=== PATIENT | female | born 1990 | race Caucasian/White ===

== ENCOUNTER 2019-04-15 08:33 | Outpatient (CLI) | payer BC, SELFPAY ==
[2019-04-15 09:27] LABS: Hemoglobin 11.7 g/dL (12.0-15.0); Mean Corpuscular HGB Conc 33.4 g/dl (32-36); Mean Corpuscular Hemoglobin 29.8 pg (26-34); Mean Corpuscular Volume 89.3 fl (80-100); Mean Platelet Volume 10.2 fl (7.4-10.4); Platelet Count Result 200 k/mm3 (150-375); Red Blood Count 3.92 M/mm3 (4.2-5.4); Red Cell Distribution Width 14.6 % (11.5-14.5)
--- NOTE | 2019-04-16 18:43 | WPDANESEPP ---
Anes - Eval Pre Procedure Procedure: Repeat C Section Date/Time: 04/16/19 18:43 Surgeon: Sharri Preop Diagnosis: Previous C Section Pre Op Diagnosis: c/s Patient Data Age: 29 Gender: F Height: Weight: Allergies Allergy/AdvReac Type Severity Reaction Status Date / Time No Known Allergies Allergy Verified 03/28/19 15:40 Home Medications Medication Instructions Recorded Confirmed Type PNV cmb#95-ferrous fumarate-FA 1 tablet PO DAILY 03/28/19 03/28/19 History [] Patient hx anesthesia problems: none Family hx anesthesia problems: none PMFSH Past Medical History Medical History Delivery by section for breech presentation Ectopic Surgical History Surgical History (Updated 04/16/19 @ 18:46 by Erik Ann CRNA) Previous section Family History Family History Father Hypertension Social History Social History Substance use: never Spiritual care concerns: No Exam Day of Procedure 04/16/19 18:43 Patient weight: overweight
[2019-04-17 10:13] LABS: Rapid Plasma Reagin Non-Reactive (NonReactive)
== END 2019-04-15 08:34 | disposition home or self-care (01) ==
PROVIDERS: Visit Provider Obstetrics & Gynecology
DX: Z34.93 Encounter for supervision of normal pregnancy, unspecified, third trimester (principal); Z3A.00 Weeks of gestation of pregnancy not specified
CPT/HCPCS: 36415; 85027; 86592; 86850; 86900; 86901

== ENCOUNTER 2019-04-17 05:19 | Inpatient (IN) | payer BC, SELFPAY ==
--- NOTE | 2019-03-28 15:49 | PC.NURSE ---
PATIENT STATES SHE IS A REPEAT C/S ON 04/17/19 AT 0730--OFFICE CALLED TO VERIFY-- NOT ON SURGERY SCHEDULE AT TIME OF PRE-ADMIT PATIENT GIVEN REQUISITION FOR LAB DRAW ON 04/15/19
[2019-04-17] VITALS (66 sets, daily range): BP systolic 72–131; BP diastolic 37–89; PULSE 65–138; RESP 10–16; TEMP 36.4–37.2; O2SAT 96–100; BMI 42.0
--- NOTE | 2019-04-17 06:06 | LDADM ---
This patient, Franchesca Lyon, was admitted to Labor/Delivery/Recovery 120 on 04/17/19 at 05:19. Plans for labor, pain management and were discussed with patient. Patient/family oriented to hospital policies and general routines including ID bracelet, bed and alarms, visiting hours, pain management, procedures, bathroom and other care routines, personal items, smoking policy, room service/diet and guest tray routines, security routines, and visiting hours. Patient/Family are encouraged to report perceived risks to care and to ask questions if they do not understand what they are told or what they should do. See OBIX for further documentation.
[2019-04-17] MEDS: LACTATED RINGERS 1,000 ML 125 ML IV CONT ×2 (06:09→06:23)
--- NOTE | 2019-04-17 06:38 | WPDANESEFPP ---
Anes - Eval Final PreProcedure Day of Procedure 04/17/19 06:38 Patient weight: obese Heart: regular rate and rhythm Lungs: clear to auscultation Airway: Mallampati scale class 1 Neurological: alert and oriented Last oral intake: >/= 8 hours ASA classification: II Emergent: no Anesthetic plan: proceed Anesthesia type and monitoring: regional spinal and standard monitoring Informed Consent: The patient's anesthetic plan and its attendant risks and benefits were discussed with the patient/family/POA. Questions were solicited and answers provided to the satisfaction of the patient/family/POA.
[2019-04-17] MEDS: ceFAZolin 2 GM/D5W 50 ML 2 GM/50 ML BAG IVPB (06:57)
--- NOTE | 2019-04-17 06:58 | PM.IMHP ---
H&P: HPI History of Present Illness Chief complaint: repeat cesearean section Narrative: Franchesca Lyon is a 29 year old female 3 para 1 011 at 39 weeks gestation who presents for repeat delivery. She has a history of delivery. She denies any loss of fluid, vaginal bleeding, contractions. She denies any headache, blurry vision, epigastric pain. She denies any nausea, vomiting, fever, chills. Denies any chest pain or shortness of breath. Review of Systems Constitutional: Constitutional: Reports no additional constitutional complaints, Denies fatigue, Denies headache(s), Denies lethargy and Denies weakness Eyes: Eyes: Reports no additional eye complaints, Denies blurry vision and Denies photophobia ENT: Reports as per HPI, Denies headache(s) and Denies neck pain Cardiovascular: Cardiovascular: Denies chest pain, Denies diaphoresis, Denies leg edema, Denies palpitations and Denies dyspnea Respiratory: Respiratory: Denies hemoptysis, Denies dyspnea and Denies wheezing Gastrointestinal: Gastrointestinal: Denies abdominal pain, Denies melena, Denies bloating, Denies hematochezia, Denies nausea and Denies vomiting Genitourinary: Genitourinary: Reports no additional female genitourinary complaints Musculoskeletal: Musculoskeletal: Denies joint swelling, Denies neck pain, Denies numbness and Denies stiffness Neurologic: Denies Abnormal speech present, Denies confusion, Denies headache(s), Denies numbness and Denies weakness Psychiatric: Psychiatric: Denies anxiety, Denies confusion, Denies depression, Denies homicidal ideation and Denies suicidal ideation Endocrine: Endocrine: Denies fatigue and Denies palpitations Allergic/Immunologic: Allergic/Immunologic: Denies wheezing PMFSH Past Medical History Medical History (Updated 04/17/19 @ 07:00 by Trixie Harrell MD) Delivery by section for breech presentation Ectopic Surgical History Surgical History (Updated 04/17/19 @ 07:00 by Trixie Harrell MD) Previous section Social History Social History Smoking status: Never smoker Substance use: never Spiritual care concerns: No Meds Home Medications and Allergies Home Medications Medication Instructions Recorded Confirmed Type PNV cmb#95-ferrous fumarate-FA 1 tablet PO DAILY 03/28/19 03/28/19 History [] Allergies Allergy/AdvReac Type Severity Reaction Status Date / Time No Known Allergies Allergy Verified 03/28/19 15:40 Vital Signs Vital Signs - 24 hr 04/17/19 05:40 04/17/19 05:46 04/17/19 06:01 Pulse Rate 110 H 106 H 103 H Blood Pressure 101/67 109/77 117/74 Exam Const: General: healthy appearing, comfortable and no acute distress; No confusion Orientation/consciousness: No confusion Eyes: Direct Ophthalmoscopy: No photophobia Resp: Auscultation: clear to auscultation bilaterally, no rales, no rhonchi and no wheezes Cardio: Rate: regular rate Heart sounds: no click, no murmurs and no rubs GI: Inspection: non-distended GI Palp: No abdominal tenderness Auscultation: normal bowel sounds Neuro: General: No confusion Speech: No Abnormal speech present Extrem: General: normal to inspection, no pedal edema and no calf tenderness Assessment and Plan Assessment and plan (1) Previous section: Code(s): Z98.891 - History of uterine scar from previous surgery Status: Acute (2) Term : Code(s): Z34.90 - Encounter for supervision of normal , unspecified, unspecified trimester Status: Acute Assessment and Plan: This patient is a 29-year-old 3 para 1011 at 39 weeks gestation who presents for repeat delivery. She has history of delivery. She understands that there are risks of the procedures. She understands that there benefits and alternatives as well. This completed the informed
--- NOTE | 2019-04-17 08:25 | P.OP_ITS ---
Procedure Note - Detailed Date of procedure: 04/17/19 Pre-op diagnosis: repeat cesearean section Post-op diagnosis: same Procedure performed: Repeat low-transverse delivery Description of procedure: The patient was taken the operating room. She was prepped and draped in the dorsal supine position with leftward tilt after induction of spinal anesthetic. When anesthesia was found to be adequate a low- transverse skin incision was made and carried down to the level the fascia with the knife. The fascial incision was made at the midline with a scalpel. The fascial incision was extended laterally with Schmitz scissors. The fascia was tented upward superior and inferior with Jody clamps. The rectus muscles were dissected off bluntly. The rectus muscles at the midline. The preperitoneal fat was dissected bluntly at the superior aspect of the separate the rectus muscles. The peritoneal cavity was entered bluntly in the same area. The peritoneal incision was extended superior and inferior with good position of bladder. Bladder blade was inserted. A low-transverse incision was made on the uterus with the scalpel. It was carried down the level of the amniotic cavity with a knife. The amniotic cavity bluntly. The uterine incision was made laterally with blunt traction. The infant was delivered. The cord was clamped and cut. The infant was handed off to waiting pediatric staff. Cord bloods were obtained. The placenta was removed manually. The uterus was exteriorized. Uterus cleared of all clots and debris. Uterus closed in 0 Vicryl in a running locked fashion. An imbricating layer of 0 Vicryl was also placed on the to bolster the closure. The uterus was returned to the abdomen. The gutters were cleared of all clots and debris. The fascia was closed 0 Vicryl in a running fashion. Subcutaneous tissue was irrigated and bleeding areas were cauterized. The skin was closed with subcuticular absorbable alin. The incision was covered with derma loza. The patient tolerated the procedure well. She was taken recovery room stable condition. Sponge, lap, needle counts were correct x2. Anesthesia: spinal Surgeon: Trixie Harrell MD Estimated blood loss (mL): 210 Drains: No Packing: No Pathology: none sent Complications: No immediate complications Condition: stable Disposition: floor Findings: Normal maternal anatomy. Average size with normal Apgars.
[2019-04-17] MEDS: KETOROLAC 30 MG/ML VIAL (*BKC) IV PUSH (11:19)
--- NOTE | 2019-04-17 12:00 | PC.NURSE ---
Mother called out for assist with feeding. Mother state she used a nipple shield with first child and stopped within a few weeks. Mother is using a nipple shield due to flat nipples. Mother states she does not like to pump and may stop if infant is unable to latch without shield. Suggested mother initiate pumping to stimulate milk supply, once her milk is in and is gaining weight and satisfied mother does not need to continue to pump. Nipple shield provided to mother due to flat nipples. Instructions given on application and cleaning of shield. Discussed nipple shield precautions and possible complications. Patient able to return demonstration on proper application of shield. Discussed the need to initiate pumping if infant continues to nurse with the shield. Patient verbalizes understanding. Reviewed infant feeding cues, frequencies, duration of feedings, feeding elimination flow sheet, and signs of adequate intake. Demonstrated stimulation techniques to wake for feeding. Assisted with infant to breast. Reviewed positioning/alignment in cross cradle, holding breast in U hold and guided asymmetrical latch on. was able to latch correctly. nursed eagerly, with steady draws and frequent swallowing noted. Reviewed signs of a correct latch, effective nursing and suck swallow ratio. was able to maintain latch without discomfort to mother. Nipple care reviewed. Instructed mother to call out for RN assistance if she is unable to latch infant for feeding or she has discomfort with nursing. Instructed feeding should be initiated three hours from start of last feeding or if feeding cues are noted before. Mother voiced understanding of information shared.
--- NOTE | 2019-04-17 12:19 | PC.NURSE ---
Patient transferred to post room #288 via stretcher. Support person present. Oriented to unit, room, information board, rooming in, admission packet and security measures. Patient verbalizes understanding.
[2019-04-17] MEDS: DEXTROSE 5%/0.45% SOD CHL 1,000 ML 125 ML IV CONT (14:24)
[2019-04-17] MEDS: SIMETHICONE 80 MG TAB.CHEW PO (20:50)
[2019-04-17] MEDS: IBUPROFEN 600 MG TABLET PO (21:19)
[2019-04-18 05:15] VITALS: BP 104/57; PULSE 93; RESP 16; TEMP 36.2; O2SAT 99
[2019-04-18] MEDS: SIMETHICONE 80 MG TAB.CHEW PO ×2 (05:24→09:10)
[2019-04-18] MEDS: IBUPROFEN 600 MG TABLET PO ×3 (05:25→23:11)
[2019-04-18 06:19] LABS: Basophils Percent Auto 0.2 % (0.2-1.2); Eosinophils Absolute Auto 0.1 K/mm3 (0-0.3); Eosinophils Percent Auto 0.7 % (0-4.4); Hematocrit 31.1 % (37.0-47.0); Hemoglobin 10.2 g/dL (12.0-15.0); Immature Granulocyte Absolute 0.07 K/mm3 (0.00-0.031); Immature Granulocyte Percent A 0.8 % (0-0.5); Lymphocytes Absolute Auto 1.33 K/mm3 (0.9-3.2); Lymphocytes Percent Auto 15.1 % (18.3-44.2); Mean Corpuscular HGB Conc 32.8 g/dl (32-36); Mean Corpuscular Hemoglobin 29.8 pg (26-34); Mean Corpuscular Volume 90.9 fl (80-100); Mean Platelet Volume 10.6 fl (7.4-10.4); Monocytes Absolute Auto 0.6 K/mm3 (0.1-0.6); Monocytes Percent Auto 6.7 % (2.6-8.5); Neutrophils Absolute Auto 6.7 K/mm3 (1.3-6.7); Neutrophils Percent Auto 76.5 % (45.5-73.1); Platelet Count Result 178 k/mm3 (150-375); Red Blood Count 3.42 M/mm3 (4.2-5.4); Red Cell Distribution Width 14.6 % (11.5-14.5); White Blood Count 8.8 K/mm3 (4.5-10.0)
--- NOTE | 2019-04-18 08:02 | WPDANLDNPN2 ---
Anes-Prog Note L&D-Neuraxial Date/Time: 04/18/19 08:02 Neuraxial medications: intrathecal PF morphine Opiod-related complaints: pruritis moderate, treatment effective Patient feedback: Patient satisfied with post-operative pain management.
--- NOTE | 2019-04-18 08:03 | WPDANLDPN2 ---
Anes-Prog Note L&D Date/Time: 04/18/19 08:03 Comfortable throughout: section Neuraxial method: spinal Epidural/Spinal procedure site: clean & non-tender Neuro status: Neuro function grossly intact. Cardiovascular status: normal Respiratory status: normal Airway patency: baseline Mental status: baseline Post-Op hydration status: normal Vital Signs: Last Vital Signs Temp 97.1 F L 04/18/19 05:15 Pulse 93 04/18/19 05:15 Resp 16 04/18/19 05:15 BP 104/57 L 04/18/19 05:15 Pulse Ox 99 04/18/19 05:15 I/O: Intake & Output 04/17/19 04/18/19 04/18/19 23:59 07:59 15:59 Intake Total 918 Output Total 3025 1000 Balance -2107 -1000 Post-procedural complaints: pruritis moderate, treatment effective Patient feedback: Patient satisfied with anesthetic care.
[2019-04-18 08:05] VITALS: BP 118/72; PULSE 105; RESP 18; TEMP 37.3; O2SAT 99
--- NOTE | 2019-04-18 08:09 | PM.OBPNVD ---
OB - PN: Subj Subjective Date/time seen: 04/18/19 08:09 Patient comments: no complaints, pain well controlled, incisional pain, tolerating diet and flatus present OB - PN: Obj Data Labs CBC & Chem 7: 04/18/19 05:24 Labs: Laboratory Results - last 24 hr 04/18/19 05:24 WBC 8.8 RBC 3.42 L Hgb 10.2 L Hct 31.1 L MCV 90.9 MCH 29.8 MCHC 32.8 RDW 14.6 H Plt Count 178 MPV 10.6 H Immature Gran % (Auto) 0.8 H Neut % (Auto) 76.5 H Lymph % (Auto) 15.1 L [place] % (Auto) 6.7 Eos % (Auto) 0.7 Baso % (Auto) 0.2 Lymph # (Auto) 1.33 [place] # (Auto) 0.6 Eos # (Auto) 0.1 Baso # (Auto) 0.0 Abs Immat Gran (auto) 0.07 H Absolute Neuts (auto) 6.7 Absolute Nucleated RBC 0.0 Nucleated RBC % 0.0 OB - PN A/P Plan day: 2 Plan: routine care Comments: POD#2 LTCS - no problems, Time Spent With Patient Time: Total time spent is greater than 50% in coordination of care (as documented) at patient's floor/unit and/or counseling patient: Exam Const: General: comfortable, no acute distress and alert Resp: Effort & Inspection: normal respiratory effort Auscultation: no crackles, no rales and no rhonchi Cardio: Rate: regular rate Heart sounds: no click, no murmurs and no rubs GI: Inspection: non-distended GI Palp: No Tenderness to palpation present (GI) Auscultation: normal bowel sounds Other: Incision - CDI Extrem: General: normal to inspection, no pedal edema and no calf tenderness
--- NOTE | 2019-04-18 08:15 | P.DS_ITS ---
DS: Diagnosis Admitting Diagnosis Admitting Diagnosis: History of uterine scar from previous surgery OB - DS: Summary OB Procedures : None OB Procedures Intrapartum: Spontaneous Vag Delivery OB Procedures: : None Peripartum Data Delivery Method: Natural Vaginal Procedures: Procedures Operation Date: 04/17/19 07:30 Actual Procedures Side Surgeon p Section Not Applicable Trixie Harrell MD Status at Discharge Functional status at discharge: independent ambulation Time Spent with Patient Time attestation: Total time spent providing and/or coordinating discharge services: DS: Data Data Completed and Pending Labs on day of discharge: Labs from last 24 hours 04/18/19 05:24 WBC 8.8 RBC 3.42 L Hgb 10.2 L Hct 31.1 L MCV 90.9 MCH 29.8 MCHC 32.8 RDW 14.6 H Plt Count 178 MPV 10.6 H Immature Gran % (Auto) 0.8 H Neut % (Auto) 76.5 H Lymph % (Auto) 15.1 L [place] % (Auto) 6.7 Eos % (Auto) 0.7 Baso % (Auto) 0.2 Lymph # (Auto) 1.33 [place] # (Auto) 0.6 Eos # (Auto) 0.1 Baso # (Auto) 0.0 Abs Immat Gran (auto) 0.07 H Absolute Neuts (auto) 6.7 Absolute Nucleated RBC 0.0 Nucleated RBC % 0.0 Discharge Plan Discharge Discharging Clinician: Trixie Harrell Patient Disposition: Home, Self-Care Activity: pelvic rest Diet: regular Patient Instructions: Antibiotic Form Stand Alone Forms: General Discharge Information Follow-up/Referrals: Trixie Harrell MD [Physician] - Discharge Medications: Continued PNV cmb#95-ferrous fumarate-FA [] 28 mg iron- 800 mcg Tablet 1 tablet PO DAILY RF: 0 Date of admission: 04/17/19 05:19 Primary Care Provider: PHYSICIAN,STREET OPENINGS INSPECTOR Admitting Provider: Trixie Harrell Attending physician on admission: Trixie Harrell
[2019-04-18] MEDS: DOCUSATE SODIUM 100 MG CAPSULE PO ×2 (09:10→17:39)
[2019-04-18] MEDS: MULTIVIT/MIN/PREN/FOL AC/IRON TABLET 1 TAB PO (09:10)
[2019-04-18 19:20] VITALS: BP 123/73; PULSE 92; RESP 20; TEMP 36.8
--- NOTE | 2019-04-19 07:40 | PM.OBPNVD ---
OB - PN: Subj Subjective Date/time seen: 04/19/19 07:40 OB - PN: Obj Data Labs CBC & Chem 7: 04/18/19 05:24 OB - PN A/P Plan day: 2 Plan: routine care Time Spent With Patient Time: Total time spent is greater than 50% in coordination of care (as documented) at patient's floor/unit and/or counseling patient: Time with patient: less than 15 minutes Review of Systems Review of Systems: All systems reviewed & are unremarkable except as noted in HPI and below Exam Const: General: comfortable Resp: Effort & Inspection: normal respiratory effort Psych: Appearance: grossly normal Mental Status: mental status grossly normal Affect: normal affect Attitude: cooperative Judgement: Good judgement present (Psych)
[2019-04-19] MEDS: MULTIVIT/MIN/PREN/FOL AC/IRON TABLET 1 TAB PO (08:05)
[2019-04-19] MEDS: DOCUSATE SODIUM 100 MG CAPSULE PO ×2 (08:05→17:57)
[2019-04-19] MEDS: SIMETHICONE 80 MG TAB.CHEW PO ×3 (08:05→17:57)
[2019-04-19] MEDS: IBUPROFEN 600 MG TABLET PO ×3 (08:05→22:42)
[2019-04-19 08:45] VITALS: BP 102/56; PULSE 93; RESP 16; TEMP 36.9; O2SAT 96
--- NOTE | 2019-04-19 09:00 | PC.NURSE ---
Consulted with patient, mother reports infant continues nursing each feeding with nipple shield. Mother is now pumping after each feeding and syringe feeding EBM of 1.5 mls. Discussed weight loss and output, mother will supplement with 15mls formula by nipple after each feeding. Reviewed feeding cues, frequencies, duration of feedings, feeding elimination flow sheet, and signs of adequate intake. Demonstrated stimulation techniques to wake for feeding. Assisted with to breast. Reviewed positioning/alignment, holding breast and asymmetrical latch on. mother was able to independently latch correctly. sleepy with minimal suckling noted. Small amount of formula to shield to entice infant. Infant nursed eagerly, with steady draws and occasional swallowing noted. Reviewed signs of a correct latch, effective nursing and suck swallow ratio. Infant was able to maintain latch without discomfort to mother. Nipple care reviewed. Instructed mother to call out for RN assistance if she is unable to latch for feeding or she has discomfort with nursing. Instructed feeding should be initiated three hours from start of last feeding or if feeding cues are noted before. Mother voiced understanding of information shared. FOB will supplement while mother pumps. Mother is pumping without difficulties or discomfort.
[2019-04-19 21:00] VITALS: BP 117/73; PULSE 91; RESP 14; TEMP 36.7; O2SAT 100
[2019-04-20 07:40] VITALS: BP 116/70; PULSE 89; RESP 16; TEMP 36.9; O2SAT 100
--- NOTE | 2019-04-20 07:59 | P.DS_ITS ---
DS: Diagnosis Admitting Diagnosis Admitting Diagnosis: History of uterine scar from previous surgery OB - DS: Summary Peripartum Data Procedures: Procedures Operation Date: 04/17/19 07:30 Actual Procedures Side Surgeon p Section Not Applicable Trixie Harrell MD Time Spent with Patient Time attestation: Total time spent providing and/or coordinating discharge services: Discharge Plan Discharge Discharging Clinician: Trixie Harrell Patient Disposition: Home, Self-Care Activity: pelvic rest Diet: regular Patient Instructions: Antibiotic Form Stand Alone Forms: General Discharge Information Follow-up/Referrals: Trixie Harrell MD [Physician] - Discharge Medications: Continued PNV cmb#95-ferrous fumarate-FA [] 28 mg iron- 800 mcg Tablet 1 tablet PO DAILY RF: 0 Date of admission: 04/17/19 05:19 Primary Care Provider: PHYSICIAN,MONITORING COORDINATOR Admitting Provider: Trixie Harrell Attending physician on admission: Trixie Harrell
--- NOTE | 2019-04-20 07:59 | PM.OBPNVD ---
OB - PN: Subj Subjective Date/time seen: 04/20/19 07:59 OB - PN: Obj Data Labs CBC & Chem 7: 04/18/19 05:24 OB - PN A/P Plan day: 3 Plan: routine care, discharge home and other Comments: Follow up in 1 week. Time Spent With Patient Time: Total time spent is greater than 50% in coordination of care (as documented) at patient's floor/unit and/or counseling patient: Time with patient: less than 15 minutes Review of Systems Review of Systems: All systems reviewed & are unremarkable except as noted in HPI and below Exam Narrative: Exam Narrative: Incision healing well. Vaginal flow appropriate No pain, tenderness, warmth of legs. Negative homans. Const: General: comfortable Resp: Effort & Inspection: normal respiratory effort GI: Auscultation: normal bowel sounds Psych: Appearance: grossly normal Mental Status: mental status grossly normal Affect: normal affect Attitude: cooperative Judgement: Good judgement present (Psych)
--- NOTE | 2019-04-20 08:02 | PM.OBDSVD ---
DS: Diagnosis Admitting Diagnosis Admitting Diagnosis: History of uterine scar from previous surgery OB - DS: Summary OB Procedures : None OB Procedures Intrapartum: Other OB Procedures: : None Peripartum Data Procedures: Procedures Operation Date: 04/17/19 07:30 Actual Procedures Side Surgeon p Section Not Applicable Trixie Harrell MD Time Spent with Patient Time attestation: Total time spent providing and/or coordinating discharge services: Discharge Plan Discharge Attending physician on discharge: Trixie Harrell Discharging Clinician: Trixie Harrell Patient Disposition: Home, Self-Care Activity: pelvic rest Diet: regular Wound Care Instructions: follow printed instructions and incision open to air Patient Instructions: Antibiotic Form Stand Alone Forms: General Discharge Information Follow-up/Referrals: Trixie Harrell MD [Physician] - Discharge Medications: New hydrocodone-acetaminophen 5-325 mg Tablet 1 tab PO Q3H PRN (Reason: Moderate Pain (4-6)) Qty: 20 RF: 0 No Action PNV cmb#95-ferrous fumarate-FA [] 28 mg iron- 800 mcg Tablet 1 tablet PO DAILY RF: 0 Date of admission: 04/17/19 05:19 Primary Care Provider: PHYSICIAN,BUSINESS SOLUTIONS DIRECTOR Admitting Provider: Trixie Harrell Attending physician on admission: Trixie Harrell
[2019-04-20] MEDS: MULTIVIT/MIN/PREN/FOL AC/IRON TABLET 1 TAB PO (10:09)
[2019-04-20] MEDS: IBUPROFEN 600 MG TABLET PO (10:09)
[2019-04-20] MEDS: DOCUSATE SODIUM 100 MG CAPSULE PO (10:10)
--- NOTE | 2019-04-20 10:15 | PC.NURSE ---
Mother able to independently latch with appropriate positioning/alignment using the nipple shield. She denies any nipple discomfort, is feeding as required and waking to feed if needed. Mother is supplementing EBM/formula after each feeding until her milk is in. Reviewed may require more supplementation until her milk is. has had 8 effective feedings in the past 24 hours, and is currently meeting outcomes for weight, output, jaundice and feeding frequencies. Mother states she feels confident to continue current plan at home. Reviewed transition to breast milk, signs of adequate intake, and engorgement/relief. Instructed to call ICP if intake/output less than required. Reviewed regular medications mother is taking. Information provided per Anastacia. Reviewed community resources on the [facility] website and in the Mom/Baby guide. Information on outpatient services provided. Mother has no further questions at this time.
--- NOTE | 2019-04-20 19:42 | PC.NURSE ---
1000 Pt states she does not want to view the discharge DVD; referred to mother baby guide and ability to view dvd at home; she agree.
[2019-04-21 10:49] VITALS: BP 127/59; PULSE 89; RESP 20; TEMP 36.6
== END 2019-04-20 14:55 | disposition home or self-care (01) | DRG 788 ==
LOC: ANHLDR 05:38 → ANHOB2 10:14
PROVIDERS: Admitting Provider Obstetrics & Gynecology; Visit Provider Obstetrics & Gynecology
PROC: 10D00Z1 Extraction of Products of Conception, Low, Open Approach (ICD-10-PCS; CPT 59514; principal; 2019-04-17 07:30)
DX: O34.211 Maternal care for low transverse scar from previous cesarean delivery (principal); Z37.0 Single live birth; Z3A.39 39 weeks gestation of pregnancy; O99.214 Obesity complicating childbirth; E66.9 Obesity, unspecified
CPT/HCPCS: 36415; 85025; A9270; J0131; J0690; J1885; J2274; J2370; J2405; J2590; J7120